=== PATIENT | male | born 1935 | race African-American/Black ===

== ENCOUNTER 2016-10-22 05:20 | Day surgery (SDC) | payer OTHER ==
--- NOTE | 2016-10-21 15:39 | EKG Report ---
Test Performed on : 10/21/2016 09:00:23 AM Test Reason : PAT Blood Pressure : / mmHG Vent. Rate : 063 BPM Atrial Rate : 063 BPM P-R Int : 174 ms QRS Dur : 088 ms QT Int : 406 ms P-R-T Axes : 009 -40 010 degrees QTc Int : 415 ms Normal sinus rhythm. Left axis deviation Possible Lateral infarct (cited on or before 30-JUN-2016) Abnormal ECG When compared with ECG of 10-AUG-2016 08:13, premature ventricular complexes. are no longer present Confirmed by Ko Sánchez DO ([id number]) on 10/21/2016 6:51:27 PM
[2016-10-22] MEDS ORDERED: 1/2 NS 500 ML ONE (05:33)
[2016-10-22] MEDS ORDERED: KEFZOL 1 GM/D5W 50 ML ONE (05:34)
[2016-10-22 05:44] LABS: HEMATOCRIT 37.7 % (42.0-52.0); MCH 28.1 PG (27-31); MCHC 31.8 g/dL (33-37); MCV 88.3 FL (81-99); RBC 4.27 XMIL (4.7-6.1)
[2016-10-22 06:10] LABS: CALCIUM 8.3 mg/dL (8.8-10.2); POTASSIUM 3.8 mmol/L (3.5-5.1)
[2016-10-22] MEDS ORDERED: SENSORCAINE 0.25%/EPI 1:200,000 ONE (06:35)
[2016-10-22] MEDS ORDERED: NS 500 ML ONE (06:35)
[2016-10-22] MEDS ORDERED: HEPARIN ONE (06:35)
[2016-10-22] MEDS ORDERED: FENTANYL ONE (07:58)
[2016-10-22] MEDS ORDERED: DIPRIVAN 1% ONE (07:58)
[2016-10-22] MEDS ORDERED: NEOSTIGMINE ONE (08:17)
[2016-10-22] MEDS ORDERED: ZEMURON ONE (08:18)
[2016-10-22] MEDS ORDERED: ZOFRAN ONE (08:18)
[2016-10-22] MEDS ORDERED: ROBINUL ONE (08:18)
[2016-10-22] MEDS ORDERED: XYLOCAINE-MPF 2% ONE (08:18)
--- NOTE | 2016-10-22 08:21 | OPERATIVE NOTE ---
PROCEDURE DATE: 10/22/2016 PROCEDURE: Diagnostic laparoscopy. SURGEON: Gregg Wick MD. [id number] TELECOMMUNICATOR: ALLEGRA Macias. PREOPERATIVE DIAGNOSIS: Chronic kidney disease, stage 5. POSTOPERATIVE DIAGNOSES: 1. Chronic kidney disease, stage 5. 2. Intraabdominal adhesions. INDICATIONS: This 80-year-old who had previous peritoneal dialysis had the PD catheter removed due to peritonitis. He now wants a new PD catheter. DESCRIPTION OF PROCEDURE: Satisfactory general endotracheal anesthesia achieved, the abdomen was prepped and draped in a sterile fashion. We anesthetized the skin at the epigastrium, made a small incision. Used a 5 trocar Optiview technique to enter the abdominal cavity. Upon entering the abdominal cavity, there were adhesions throughout. There was no open space. The adhesions were filmy, but we never were able to get into an open space as they were widespread, so it became evident that peritoneal dialysis would not work well on this abdominal cavity due to the diffuse adhesions. We then removed our scope, desufflated the abdomen, removed the 5 trocar, closed the skin with a 4-0 Polysorb subcuticular stitch. Telfa and sterile OpSite was applied. He tolerated it well. Was sent to the recovery room in satisfactory condition.
[2016-10-22] MEDS ORDERED: NORCO-10 PO PRN (08:33)
[2016-10-22] MEDS ORDERED: ZOFRAN IV PRN (08:33)
[2016-10-22 08:59] VITALS: BP 133/85
[2016-10-22] MEDS ORDERED: NORVASC PO SCH (09:00)
[2016-10-22] MEDS ORDERED: SORBITOL PO SCH (09:00)
[2016-10-22] MEDS ORDERED: VALSARTAN 40 MG PO SCH (09:00)
[2016-10-22] MEDS ORDERED: SYNTHROID PO SCH (09:00)
[2016-10-22] MEDS ORDERED: LACTOBACILLUS RHAMNOSUS GG PO SCH (09:00)
[2016-10-22] MEDS ORDERED: PEPCID PO SCH (09:00)
[2016-10-22] MEDS ORDERED: NON-FORMULARY MED (Omeprazole [Omeprazole] 40 MG) PO SCH (09:00)
[2016-10-22] MEDS ORDERED: CALCITRIOL 0.5 MCG PO SCH (09:00)
[2016-10-22] MEDS ORDERED: NEPHRO-VITE PO SCH (09:00)
[2016-10-22] MEDS ORDERED: NON-FORMULARY MED (Ferric Citrate [Auryxia] 210 MG) PO SCH (09:00)
== END 2016-10-22 09:10 | disposition home or self-care (01) ==
LOC: OPS 05:20
PROVIDERS: ATTEND Surgery
DX: N18.6 End stage renal disease (principal); K66.0 Peritoneal adhesions (postprocedural) (postinfection); E11.9 Type 2 diabetes mellitus without complications; I10 Essential (primary) hypertension; Z85.46 Personal history of malignant neoplasm of prostate
CPT/HCPCS: 80048; 82948; 85027; 93005; 93010; J0690; J1644; J2405; J3010; J7040; J2710